=== PATIENT | female | born 1945 | race Caucasian/White ===

== ENCOUNTER → 2016-04-27 | Outpatient (CLI) | payer MEDICARE, BC ==
[~2016-04-27] MED LIST: ALEVE LIQCAPS PO; B-12 100 MCG PO; BENAZEPRIL PO; CALCIUM 600MG+D1 TAB PO; CARDIZEM CD 12120 MG PO; CELEXA 20MG20 MG/TAB PO; COLACE 100100 MG/CAP PO; COMTAN 200MG T200 MG PO; ELIQUIS 5MG PO; EPA FISH OIL1 SGL PO; GLUCOPHAGE500 MG/TAB PO; HCTZ 25MG TAB25 MG PO; HCTZ PO; K-TAB10 PO; K-TAB20 PO; KLONOPIN 0.5MG0.5 MG PO; KLONOPIN WAFER0.5 MG PO; KRILL OIL 3001 EACH PO; LEVAQUIN 750MG750 M1 PO; LIORESAL 1010 MG/TAB PO; LORTAB 5/500 501 TAB PO; LOTENSIN20 MG PO; MULTIPLE VITAMI1 CAP PO; OYSTER CALCIUM/1 TA1 PO; PERCOCET 325 MG1 TAB PO; PREDNISONE10 MG PO; REQUIP 0.5MG0.5 MG PO; REQUIP 1MG T1 MG/TAB PO; REQUIP3 MG PO; SINEMET 25/101 UDTAB PO; TOPROL XL 50MG50 MG PO; TYLENOL 325MG325 MG PO; VITAMIN C500 MG PO; VITAMIN D 400400 IU PO; VITAMINE200 PO; WELLBUTRIN SR150 M1 PO; XOPENEX 1.1.25 MG/3 IH
== END ==
LOC: SUN.DIA 13:12
DX: E11.21 Type 2 diabetes mellitus with diabetic nephropathy (principal); Z79.84 Long term (current) use of oral hypoglycemic drugs; E66.9 Obesity, unspecified; Z71.3 Dietary counseling and surveillance; I10 Essential (primary) hypertension; I73.9 Peripheral vascular disease, unspecified

== ENCOUNTER 2016-08-30 16:38 | Inpatient (IN) | payer MEDICARE, BC ==
[~2016-08-30] VITALS: Ht 177.8 cm; Wt 112.0 kg
[~2016-08-30 16:38] MED LIST changes: -CALCIUM 600MG+D1 TAB PO; -CARDIZEM CD 12120 MG PO; -COLACE 100100 MG/CAP PO; -ELIQUIS 5MG PO; -EPA FISH OIL1 SGL PO; -GLUCOPHAGE500 MG/TAB PO; -HCTZ 25MG TAB25 MG PO; -K-TAB10 PO; -K-TAB20 PO; -KLONOPIN 0.5MG0.5 MG PO; -KLONOPIN WAFER0.5 MG PO; -KRILL OIL 3001 EACH PO; -LEVAQUIN 750MG750 M1 PO; -LOTENSIN20 MG PO; -PERCOCET 325 MG1 TAB PO; -PREDNISONE10 MG PO; -REQUIP 1MG T1 MG/TAB PO; -REQUIP3 MG PO; -TOPROL XL 50MG50 MG PO; -TYLENOL 325MG325 MG PO; -VITAMINE200 PO; -WELLBUTRIN SR150 M1 PO; -XOPENEX 1.1.25 MG/3 IH
[2016-08-30 17:21] LABS: BASO % 0.2 % (0.0-2.0); EOS % 0.3 % (0-4.0); GRAN # 6.3 (1.4-6.5); GRAN % 72.9 % (42.2-75.2); HEMATOCRIT 39.2 % (37.0-47.0); LYMPH # 1.3 (1.2-3.4); LYMPH % 14.4 % (20.0-51.0); MEAN CELL VOLUME 85 fl (80.0-100.0); MEAN CORPUSCULAR HEMOGLOBIN 28 pg (27.0-31.0); MEAN CORPUSCULAR HGB CONC 33 g/dl (33.0-37.0); MEAN PLATELET VOLUME 10.8 fl (7.4-10.4); MONO % 11.3 % (1.7-9.3); PLATELET COUNT 210 K/mm3 (130-400); RED BLOOD COUNT 4.64 M/mm3 (4.10-5.30); REDCELL DISTRIBUTION WIDTH-CV 13.2 % (11.5-14.5); WHITE BLOOD COUNT 8.7 K/mm3 (4.8-10.8)
[2016-08-30 17:24] LABS: INR 1.1 (0.8-3.0); PROTHROMBIN TIME 12.1 SECONDS (9.7-12.8)
[2016-08-30 17:31] LABS: ADJUSTED CALCIUM 9.9 mg/dL (8.4-10.2); ALANINE AMINOTRANSFERASE 17 U/L (9-52); ALBUMIN 4.4 gm/dL (3.5-5.0); ALKALINE PHOSPHATASE 89 U/L (50-136); ANION GAP 12 mmol/L (7-16); BILIRUBIN,TOTAL 1.2 mg/dL (0.0-1.0); BLOOD UREA NITROGEN 15 mg/dL (7-17); CALCIUM 10.2 mg/dL (8.4-10.2); CARBON DIOXIDE 29 mmol/L (22-30); CHLORIDE 96 mmol/L (98-107); CREATININE, serum 0.75 mg/dL (0.52-1.25); GLUCOSE 160 mg/dL (74-106); POTASSIUM 3.6 mmol/L (3.4-5.0); SODIUM 137 mmol/L (137-145); TOTAL PROTEIN 7.4 gm/dL (6.4-8.2)
[2016-08-30 17:32] LABS: PH 6 (5-8); URINE APPEARANCE Hazy; URINE BACTERIA Rare /hpf; URINE BILIRUBIN Negative (NEGATIVE); URINE BLOOD Negative (NEGATIVE); URINE COLOR Amber; URINE GLUCOSE Negative (NEGATIVE); URINE KETONE 1+ (NEGATIVE); URINE UROBILINOGEN Negative (NEGATIVE)
[2016-08-30 17:33] LABS: URINE WBC 20-50 /hpf
[2016-08-30] MEDS ORDERED: REQUIP 1MG T1 MG/TAB PO (17:40)
[2016-08-30 17:41] LABS: B-TYPE NATRIURETIC PEPTIDE 250 pg/mL (0-125)
[2016-08-30 17:42] LABS: TROPONIN-I < 0.012 ng/mL (0.000-0.034)
[2016-08-30] MEDS ORDERED: LIORESAL 1010 MG/TAB PO (17:44)
[2016-08-30] MEDS ORDERED: KLONOPIN WAFER0.5 MG PO (17:46)
[2016-08-30] MEDS ORDERED: KLONOPIN 0.5MG0.5 MG PO (17:48)
[2016-08-30] MEDS ORDERED: COMTAN 200MG T200 MG PO (17:50)
[2016-08-30 20:19] VITALS: BP 152/85; PULSE 130; TEMP 98.9
[2016-08-31] VITALS (615 sets, daily range): BP systolic 107–171; BP diastolic 49–85; PULSE 66–108; TEMP 98.2–101.4; O2SAT 62–100
[2016-08-31 03:47] LABS: BASO % 0.3 % (0.0-2.0); EOS % 0.1 % (0-4.0); GRAN % 73.5 % (42.2-75.2); HEMOGLOBIN 12.1 g/dl (12.5-16.0); LYMPH % 14.7 % (20.0-51.0); MEAN CELL VOLUME 84 fl (80.0-100.0); MEAN CORPUSCULAR HEMOGLOBIN 28 pg (27.0-31.0); MEAN CORPUSCULAR HGB CONC 33 g/dl (33.0-37.0); MEAN PLATELET VOLUME 10.6 fl (7.4-10.4); MONO # 0.8 (0.1-0.6); MONO % 11.1 % (1.7-9.3); PLATELET COUNT 182 K/mm3 (130-400); RED BLOOD COUNT 4.34 M/mm3 (4.10-5.30); REDCELL DISTRIBUTION WIDTH-CV 13.2 % (11.5-14.5); WHITE BLOOD COUNT 6.9 K/mm3 (4.8-10.8)
[2016-08-31 03:51] LABS: HEMATOCRIT 36.5 % (37.0-47.0)
[2016-08-31 03:57] LABS: CALCIUM 9.4 mg/dL (8.4-10.2); CREATININE, serum 0.7 mg/dL (0.52-1.25); POTASSIUM 3.4 mmol/L (3.4-5.0)
[2016-08-31] MEDS ORDERED: REQUIP3 MG PO (10:29)
[2016-08-31] MEDS ORDERED: SINEMET 25/101 UDTAB PO ×2 (10:32→10:34)
[2016-08-31] MEDS ORDERED: CALCIUM 600MG+D1 TAB PO (10:43)
[2016-08-31] MEDS ORDERED: WELLBUTRIN SR150 M1 PO (10:44)
[2016-08-31] MEDS ORDERED: HCTZ 25MG TAB25 MG PO (10:45)
[2016-08-31] MEDS ORDERED: LOTENSIN20 MG PO (10:45)
[2016-08-31] MEDS ORDERED: EPA FISH OIL1 SGL PO (10:46)
[2016-08-31] MEDS ORDERED: KRILL OIL 3001 EACH PO (10:47)
[2016-08-31] MEDS ORDERED: VITAMINE200 PO (10:55)
[2016-08-31] MEDS ORDERED: GLUCOPHAGE500 MG/TAB PO (11:07)
[2016-08-31] MEDS ORDERED: PERCOCET 325 MG1 TAB PO (11:11)
[2016-09-01 04:43] VITALS: BP 119/80; PULSE 98; TEMP 97.6
[2016-09-01 07:28] VITALS: BP 113/56; PULSE 65; TEMP 98.2
[2016-09-01 11:30] VITALS: BP 99/53; PULSE 71; TEMP 97.9
[2016-09-01 16:37] VITALS: BP 104/54; PULSE 82; TEMP 97.9
[2016-09-01 20:54] VITALS: BP 113/52; PULSE 78; TEMP 98.2
[2016-09-01 22:51] VITALS: BP 135/61; PULSE 66; TEMP 97.8
[2016-09-02 02:45] VITALS: BP 153/71; PULSE 66; TEMP 97.1
[2016-09-02 08:10] VITALS: BP 121/65; PULSE 64; TEMP 97.6
[2016-09-02 09:31] LABS: CALCIUM 9.6 mg/dL (8.4-10.2); CREATININE, serum 0.72 mg/dL (0.52-1.25); POTASSIUM 3.2 mmol/L (3.4-5.0)
[2016-09-02 12:29] VITALS: BP 134/93; PULSE 68; TEMP 97.9
[2016-09-02] MEDS ORDERED: LEVAQUIN 750MG750 M1 PO (12:52)
[2016-09-02] MEDS ORDERED: XOPENEX 1.1.25 MG/3 IH (12:54)
[2016-09-02] MEDS ORDERED: TOPROL XL 50MG50 MG PO (12:54)
[2016-09-02] MEDS ORDERED: TYLENOL 325MG325 MG PO (12:55)
[2016-09-02] MEDS ORDERED: COLACE 100100 MG/CAP PO (12:56)
[2016-09-02] MEDS ORDERED: PREDNISONE10 MG PO (12:57)
[2016-09-02] MEDS ORDERED: KLONOPIN 0.5MG0.5 MG PO (12:58)
[2016-09-02] MEDS ORDERED: PERCOCET 325 MG1 TAB PO (12:58)
[2016-09-02 16:18] VITALS: BP 99/77; PULSE 68; TEMP 98
[2016-09-02 20:13] VITALS: BP 110/46; PULSE 61; TEMP 97.6
[2016-09-03 00:32] VITALS: BP 104/57; PULSE 56; TEMP 97.6
[2016-09-03 03:37] VITALS: BP 139/64; PULSE 68; TEMP 97.9
[2016-09-03 07:03] LABS: CALCIUM 9.5 mg/dL (8.4-10.2); CREATININE, serum 0.74 mg/dL (0.52-1.25); MAGNESIUM 1.6 mg/dL (1.6-2.3)
[2016-09-03] MEDS ORDERED: LEVAQUIN 750MG750 M1 PO ×2 (07:57→07:59)
[2016-09-03] MEDS ORDERED: K-TAB20 PO (07:59)
[2016-09-03 08:33] VITALS: BP 129/61; PULSE 65; TEMP 97.5
[2016-09-03 10:58] VITALS: BP 121/54; PULSE 68
[2016-09-03] MEDS ORDERED: K-TAB10 PO (13:04)
[2016-09-03 14:16] VITALS: BP 121/54; PULSE 68; TEMP 97.5
[2016-09-03] MEDS ORDERED: CARDIZEM CD 12120 MG PO (16:31)
[2016-09-03] MEDS ORDERED: ELIQUIS 5MG PO (16:31)
== END 2016-09-03 15:35 | DRG 689 ==
LOC: COL.ER 16:38 → MEDICAL 17:58 → ICU 20:40 → MEDICAL 20:40 → ICU 20:40 → MEDICAL 21:58
PROVIDERS: Emergency Medicine; Nurse Practitioner Family
DX: N39.0 Urinary tract infection, site not specified (principal); A41.51 Sepsis due to Escherichia coli [E. coli]; I50.31 Acute diastolic (congestive) heart failure; I48.92 Unspecified atrial flutter; N17.9 Acute kidney failure, unspecified; J20.9 Acute bronchitis, unspecified; B96.20 Unspecified Escherichia coli [E. coli] as the cause of diseases classified elsewhere; G20 Parkinson's disease; I11.0 Hypertensive heart disease with heart failure; Z87.891 Personal history of nicotine dependence; I48.0 Paroxysmal atrial fibrillation; E87.6 Hypokalemia; R73.9 Hyperglycemia, unspecified; T38.0X5A Adverse effect of glucocorticoids and synthetic analogues, initial encounter
CPT/HCPCS: 99223-AI; 99233-AI; 99239; G8987-GO; G8988-GO; J1815; J1940; J1956; J2060; J2270; J7030; J7050; J7512; Q9967

== ENCOUNTER → 2016-09-17 | Outpatient (CLI) | payer OTHER, MEDICARE, BC ==
[~2016-09-17] MED LIST changes: +CALCIUM 600MG+D1 TAB PO; +CARDIZEM CD 12120 MG PO; +COLACE 100100 MG/CAP PO; +ELIQUIS 5MG PO; +EPA FISH OIL1 SGL PO; +GLUCOPHAGE500 MG/TAB PO; +HCTZ 25MG TAB25 MG PO; +K-TAB10 PO; +K-TAB20 PO; +KLONOPIN 0.5MG0.5 MG PO; +KLONOPIN WAFER0.5 MG PO; +KRILL OIL 3001 EACH PO; +LEVAQUIN 750MG750 M1 PO; +LOTENSIN20 MG PO; +PERCOCET 325 MG1 TAB PO; +PREDNISONE10 MG PO; +REQUIP 1MG T1 MG/TAB PO; +REQUIP3 MG PO; +TOPROL XL 50MG50 MG PO; +TYLENOL 325MG325 MG PO; +VITAMINE200 PO; +WELLBUTRIN SR150 M1 PO; +XOPENEX 1.1.25 MG/3 IH
== END ==
LOC: COL.CARD 10:41
DX: I48.91 Unspecified atrial fibrillation (principal)

== ENCOUNTER → 2016-12-16 | Outpatient (CLI) | payer MEDICARE, BC | LOC: COL.RAD 10:59 | DX: M48.07 Spinal stenosis, lumbosacral region (principal); M51.27 Other intervertebral disc displacement, lumbosacral region; M47.817 Spondylosis without myelopathy or radiculopathy, lumbosacral region; M41.86 Other forms of scoliosis, lumbar region; G20 Parkinson's disease ==

== ENCOUNTER 2017-11-17 12:01 | Inpatient (IN) | payer MEDICARE, BC ==
[2017-11-17] VITALS (445 sets, daily range): BP systolic 106–128; BP diastolic 47–67; PULSE 62–75; TEMP 97.6–97.8; O2SAT 84–100
[~2017-11-17] VITALS: Ht 172.7 cm; Wt 99.2 kg
[~2017-11-17 12:01] MED LIST changes: -REQUIP3 MG PO; -WELLBUTRIN SR150 M1 PO; +WELLBUTRIN XL300 M1 PO
[2017-11-17 12:41] LABS: BASO % 0.2 % (0.0-2.0); EOS # 0.1 (0.0-0.7); GRAN # 6.1 (1.4-6.5); GRAN % 58.6 % (42.2-75.2); HEMATOCRIT 42.2 % (37.0-47.0); HEMOGLOBIN 13.1 g/dl (12.5-16.0); LYMPH # 3.3 (1.2-3.4); LYMPH % 31.4 % (20.0-51.0); MEAN CELL VOLUME 85 fl (80.0-100.0); MEAN CORPUSCULAR HEMOGLOBIN 27 pg (27.0-31.0); MEAN CORPUSCULAR HGB CONC 31 g/dl (33.0-37.0); MEAN PLATELET VOLUME 12.8 fl (7.4-10.4); MONO # 0.9 (0.1-0.6); MONO % 8.5 % (1.7-9.3); PLATELET COUNT 287 K/mm3 (130-400); RED BLOOD COUNT 4.94 M/mm3 (4.10-5.30); REDCELL DISTRIBUTION WIDTH-CV 13.4 % (11.5-14.5)
[2017-11-17 12:50] LABS: ALANINE AMINOTRANSFERASE < 6 U/L (9-52); ALBUMIN 4.8 gm/dL (3.5-5.0); ALKALINE PHOSPHATASE 64 U/L (50-136); ANION GAP 25 mmol/L (7-16); AST,SGOT 14 U/L (15-37); BILIRUBIN,TOTAL 1.2 mg/dL (0.0-1.0); BLOOD UREA NITROGEN 19 mg/dL (7-17); CALCIUM 10.8 mg/dL (8.4-10.2); CARBON DIOXIDE 21 mmol/L (22-30); CHLORIDE 94 mmol/L (98-107); CREATININE, serum 0.93 mg/dL (0.52-1.25); GLUCOSE 121 mg/dL (74-106); POTASSIUM 3.4 mmol/L (3.4-5.0); SODIUM 141 mmol/L (137-145); TOTAL PROTEIN 7.7 gm/dL (6.4-8.2)
[2017-11-17] MEDS ORDERED: KLONOPIN 0.5MG0.5 MG PO (13:06)
[2017-11-17] MEDS ORDERED: GLUCOPHAGE500 MG/TAB PO (13:11)
[2017-11-17 13:13] LABS: PROLACTIN < 1.4 ng/mL (3.0-18.6)
[2017-11-17] MEDS ORDERED: PERCOCET 325 MG1 TAB PO (13:13)
[2017-11-17 21:01] LABS: COLLECTION METHOD CATHETER
[2017-11-17 21:07] LABS: MUCOUS Present /lpf; PH 6 (5-8); SQUAMOUS EPITHELIAL 0-2 /hpf; URINE APPEARANCE Clear; URINE BACTERIA Rare /hpf; URINE BILIRUBIN Negative (NEGATIVE); URINE BLOOD Negative (NEGATIVE); URINE COLOR Yellow; URINE GLUCOSE Negative (NEGATIVE); URINE KETONE Trace (NEGATIVE); URINE LEUKOCYTE ESTERASE Negative (NEGATIVE); URINE NITRATE Negative (NEGATIVE); URINE PROTEIN(semi-quant) Negative (NEGATIVE); URINE RBC None Seen /hpf; URINE UROBILINOGEN Negative (NEGATIVE)
[2017-11-18] VITALS (615 sets, daily range): BP systolic 101–153; BP diastolic 45–76; PULSE 56–90; TEMP 97.1–99.3; O2SAT 61–100
[2017-11-18] MEDS ORDERED: SINEMET 25/101 UDTAB PO (13:19)
[2017-11-18] MEDS ORDERED: LIORESAL 1010 MG/TAB PO (13:20)
[2017-11-18] MEDS ORDERED: REQUIP 1MG T1 MG/TAB PO (13:23)
[2017-11-19 03:08] VITALS: BP 109/43; PULSE 63; TEMP 98.3
[2017-11-19 07:48] VITALS: BP 101/51; PULSE 59; TEMP 98.3
[2017-11-19 12:06] VITALS: BP 145/59; PULSE 77; TEMP 98.3
[2017-11-19 13:34] LABS: MEAN CELL VOLUME 81 fl (80.0-100.0); MEAN CORPUSCULAR HGB CONC 33 g/dl (33.0-37.0); MEAN PLATELET VOLUME 12.7 fl (7.4-10.4); RED BLOOD COUNT 4.04 M/mm3 (4.10-5.30); REDCELL DISTRIBUTION WIDTH-CV 13.5 % (11.5-14.5)
[2017-11-19 13:39] LABS: HEMATOCRIT 32.6 % (37.0-47.0); HEMOGLOBIN 10.8 g/dl (12.5-16.0); MEAN CORPUSCULAR HEMOGLOBIN 27 pg (27.0-31.0)
[2017-11-19 13:40] LABS: PLATELET COUNT 171 K/mm3 (130-400)
[2017-11-19 16:13] VITALS: BP 118/66; PULSE 77; TEMP 98.3
[2017-11-19 19:33] VITALS: BP 102/56; PULSE 62; TEMP 98.1
[2017-11-20 01:07] VITALS: BP 127/57; PULSE 64; TEMP 98.9
[2017-11-20 04:09] VITALS: BP 110/55; PULSE 57; TEMP 98.2
[2017-11-20 07:20] LABS: BASO % 0.4 % (0.0-2.0); EOS # 0.1 (0.0-0.7); EOS % 2.3 % (0-4.0); GRAN # 3.2 (1.4-6.5); HEMOGLOBIN 10.1 g/dl (12.5-16.0); LYMPH % 21.4 % (20.0-51.0); MEAN CELL VOLUME 82 fl (80.0-100.0); MEAN CORPUSCULAR HEMOGLOBIN 27 pg (27.0-31.0); MEAN CORPUSCULAR HGB CONC 33 g/dl (33.0-37.0); MEAN PLATELET VOLUME 12.5 fl (7.4-10.4); MONO # 0.5 (0.1-0.6); MONO % 9.5 % (1.7-9.3); PLATELET COUNT 145 K/mm3 (130-400); RED BLOOD COUNT 3.78 M/mm3 (4.10-5.30); REDCELL DISTRIBUTION WIDTH-CV 13.8 % (11.5-14.5)
[2017-11-20 07:22] LABS: HEMATOCRIT 30.8 % (37.0-47.0)
[2017-11-20 07:31] VITALS: BP 113/65; PULSE 61; TEMP 98.1
[2017-11-20 07:31] LABS: CALCIUM 8.4 mg/dL (8.4-10.2); CREATININE, serum 0.62 mg/dL (0.52-1.25)
[2017-11-20 07:44] LABS: POTASSIUM 2.7 mmol/L (3.4-5.0)
[2017-11-20 12:25] VITALS: BP 121/56; PULSE 54; TEMP 98.3
[2017-11-20 14:11] LABS: CALCIUM 8.4 mg/dL (8.4-10.2); CREATININE, serum 0.53 mg/dL (0.52-1.25)
[2017-11-20] MEDS ORDERED: KEPPRA 500MG500 MG PO (14:55)
[2017-11-20] MEDS ORDERED: K-DUR20 MEQ PO (15:45)
== END 2017-11-20 16:50 | disposition home or self-care (01) | DRG 101 ==
LOC: COL.ER 12:01 → ICU 13:20 → MEDICAL 11-18 11:55
PROVIDERS: Emergency Medicine; Student in an Organized Health Care Education/Training Program
DX: R56.9 Unspecified convulsions (principal); E87.2 Acidosis; Z66 Do not resuscitate; G20 Parkinson's disease; A08.4 Viral intestinal infection, unspecified; I10 Essential (primary) hypertension; E11.9 Type 2 diabetes mellitus without complications; Z87.891 Personal history of nicotine dependence; E87.6 Hypokalemia; F32.9 Major depressive disorder, single episode, unspecified
CPT/HCPCS: 99232-AI; 99233-AI; 99239; J1650; J1953; J2405; J3480; J7030

== ENCOUNTER 2017-11-24 11:55 | Inpatient (IN) | payer MEDICARE, BC ==
[~2017-11-24] VITALS: Ht 175.3 cm; Wt 102.1 kg
[~2017-11-24 11:55] MED LIST changes: +K-DUR20 MEQ PO; +KEPPRA 500MG500 MG PO
[2017-11-24 12:25] VITALS: BP 118/69; PULSE 67; TEMP 98.2
[2017-11-24 15:37] LABS: MEAN CELL VOLUME 81 fl (80.0-100.0); MEAN CORPUSCULAR HGB CONC 33 g/dl (33.0-37.0); MEAN PLATELET VOLUME 11.9 fl (7.4-10.4); PLATELET COUNT 194 K/mm3 (130-400); RED BLOOD COUNT 3.57 M/mm3 (4.10-5.30); REDCELL DISTRIBUTION WIDTH-CV 13.9 % (11.5-14.5)
[2017-11-24 15:38] LABS: HEMATOCRIT 28.9 % (37.0-47.0); HEMOGLOBIN 9.6 g/dl (12.5-16.0); MEAN CORPUSCULAR HEMOGLOBIN 27 pg (27.0-31.0)
[2017-11-24 15:48] LABS: ALBUMIN 2.9 gm/dL (3.5-5.0); BILIRUBIN,TOTAL 0.4 mg/dL (0.0-1.0); CALCIUM 8.4 mg/dL (8.4-10.2); CREATININE, serum 0.54 mg/dL (0.52-1.25); MAGNESIUM 1.2 mg/dL (1.6-2.3); POTASSIUM 3.3 mmol/L (3.4-5.0); TOTAL PROTEIN 5.2 gm/dL (6.4-8.2)
[2017-11-24 15:59] LABS: BAND 1 % (0-10); EOSINOPHIL 2 % (0-4); LYMPHOCYTE 22 % (20.0-51.0); NEUTROPHILS 75 % (42.0-75.2)
[2017-11-24 16:00] LABS: ANISOCYTOSIS 1+; PLATELET ESTIMATE NORMAL (NORMAL)
[2017-11-24 19:43] VITALS: BP 144/74; PULSE 62; TEMP 97.9
[2017-11-25] VITALS (12 sets, daily range): BP systolic 120–155; BP diastolic 56–73; PULSE 58–84; TEMP 97.3–99
[2017-11-25 08:50] LABS: CALCIUM 8.4 mg/dL (8.4-10.2); CREATININE, serum 0.54 mg/dL (0.52-1.25); MAGNESIUM 1.3 mg/dL (1.6-2.3); POTASSIUM 3.5 mmol/L (3.4-5.0)
[2017-11-25 09:49] LABS: BASO % 0.3 % (0.0-2.0); EOS # 0.1 (0.0-0.7); EOS % 1.8 % (0-4.0); GRAN # 4.3 (1.4-6.5); GRAN % 70.8 % (42.2-75.2); LYMPH # 1.3 (1.2-3.4); LYMPH % 20.7 % (20.0-51.0); MEAN CELL VOLUME 81 fl (80.0-100.0); MEAN CORPUSCULAR HEMOGLOBIN 27 pg (27.0-31.0); MEAN CORPUSCULAR HGB CONC 33 g/dl (33.0-37.0); MEAN PLATELET VOLUME 12.7 fl (7.4-10.4); MONO # 0.3 (0.1-0.6); MONO % 5.6 % (1.7-9.3); PLATELET COUNT 226 K/mm3 (130-400); RED BLOOD COUNT 3.76 M/mm3 (4.10-5.30); REDCELL DISTRIBUTION WIDTH-CV 13.7 % (11.5-14.5)
[2017-11-25 09:52] LABS: HEMATOCRIT 30.5 % (37.0-47.0)
[2017-11-26] VITALS (7 sets, daily range): BP systolic 111–138; BP diastolic 56–66; PULSE 55–68; TEMP 97.8–98.7
[2017-11-26 07:18] LABS: BASO % 0.2 % (0.0-2.0); EOS # 0.2 (0.0-0.7); EOS % 2.8 % (0-4.0); GRAN # 3.7 (1.4-6.5); GRAN % 64.1 % (42.2-75.2); LYMPH # 1.4 (1.2-3.4); LYMPH % 24.4 % (20.0-51.0); MEAN CELL VOLUME 82 fl (80.0-100.0); MEAN CORPUSCULAR HGB CONC 32 g/dl (33.0-37.0); MEAN PLATELET VOLUME 12.1 fl (7.4-10.4); MONO # 0.5 (0.1-0.6); MONO % 7.8 % (1.7-9.3); PLATELET COUNT 212 K/mm3 (130-400); RED BLOOD COUNT 3.66 M/mm3 (4.10-5.30)
[2017-11-26 07:22] LABS: HEMOGLOBIN 9.7 g/dl (12.5-16.0); MEAN CORPUSCULAR HEMOGLOBIN 27 pg (27.0-31.0)
[2017-11-26 07:32] LABS: CALCIUM 8.4 mg/dL (8.4-10.2); CREATININE, serum 0.57 mg/dL (0.52-1.25); POTASSIUM 3.4 mmol/L (3.4-5.0)
[2017-11-27 03:52] VITALS: BP 138/69; PULSE 62; TEMP 98.3
[2017-11-27 08:20] LABS: BASO % 0.3 % (0.0-2.0); EOS # 0.2 (0.0-0.7); EOS % 3.9 % (0-4.0); GRAN # 3.7 (1.4-6.5); GRAN % 62.1 % (42.2-75.2); LYMPH # 1.5 (1.2-3.4); LYMPH % 24.8 % (20.0-51.0); MEAN CELL VOLUME 83 fl (80.0-100.0); MEAN CORPUSCULAR HGB CONC 32 g/dl (33.0-37.0); MEAN PLATELET VOLUME 12.4 fl (7.4-10.4); MONO # 0.5 (0.1-0.6); PLATELET COUNT 203 K/mm3 (130-400); RED BLOOD COUNT 3.11 M/mm3 (4.10-5.30); REDCELL DISTRIBUTION WIDTH-CV 14.3 % (11.5-14.5)
[2017-11-27 08:21] LABS: HEMATOCRIT 25.7 % (37.0-47.0); HEMOGLOBIN 8.3 g/dl (12.5-16.0); MEAN CORPUSCULAR HEMOGLOBIN 27 pg (27.0-31.0)
[2017-11-27 08:30] LABS: CALCIUM 8.2 mg/dL (8.4-10.2); CREATININE, serum 0.56 mg/dL (0.52-1.25); MAGNESIUM 1.7 mg/dL (1.6-2.3); POTASSIUM 3.5 mmol/L (3.4-5.0)
[2017-11-27 08:55] VITALS: BP 142/66; PULSE 61; TEMP 98.2
[2017-11-27 12:30] VITALS: BP 115/67; PULSE 62; TEMP 97.3
[2017-11-27 16:07] VITALS: BP 117/81; PULSE 59; TEMP 97.1
[2017-11-27 19:39] VITALS: BP 107/58; PULSE 66; TEMP 98.5
[2017-11-27 23:26] VITALS: BP 133/61; PULSE 66; TEMP 98.4
[2017-11-28 04:45] VITALS: BP 131/72; PULSE 59; TEMP 98.3
[2017-11-28 07:38] VITALS: BP 119/67; PULSE 60; TEMP 96.9
[2017-11-28] MEDS ORDERED: MAG-OX 400400 MG/TAB PO (07:47)
[2017-11-28] MEDS ORDERED: PROTONIX20 MG PO (07:48)
[2017-11-28 11:14] VITALS: BP 139/79; PULSE 55; TEMP 97.7
[2017-11-28] MEDS ORDERED: GLUCOPHAGE1000 MG PO (20:44)
[2017-11-28] MEDS ORDERED: GLUCOPHAGE500 MG/TAB PO (20:44)
== END 2017-11-28 11:56 | DRG 392 ==
LOC: MEDICAL 11:55
PROVIDERS: Hospitalist; Internal Medicine; Internal Medicine Gastroenterology; Physician Assistant
PROC: 0DB68ZX Excision of Stomach, Via Natural or Artificial Opening Endoscopic, Diagnostic (ICD-10-PCS; principal; 2017-11-25 11:15)
DX: K29.70 Gastritis, unspecified, without bleeding (principal); K20.9 Esophagitis, unspecified; E87.6 Hypokalemia; E83.42 Hypomagnesemia; R62.7 Adult failure to thrive; G20 Parkinson's disease; I10 Essential (primary) hypertension; E11.9 Type 2 diabetes mellitus without complications; G40.909 Epilepsy, unspecified, not intractable, without status epilepticus
CPT/HCPCS: 99222-AI; 99231-AI; 99232-AI; 99239; J1650; J2250; J2405; J3010; J3475; J3480

== ENCOUNTER 2017-12-13 18:28 | Inpatient (IN) | payer MEDICARE, BC ==
[~2017-12-13] VITALS: Ht 175.3 cm; Wt 102.0 kg
[2017-12-13] VITALS (16 sets, daily range): BP systolic 89–123; BP diastolic 50–71; PULSE 61–63; TEMP 97.5–98.3; O2SAT 96–100
[~2017-12-13 18:28] MED LIST changes: +ANUSOL HC CREAM30 GM TOP; +GLUCOPHAGE1000 MG PO; +MAG-OX 400400 MG/TAB PO; +PROTONIX20 MG PO; +ZOLOFT 25MG25 MG PO; +ZOLOFT 50MG50 MG PO
[2017-12-13 19:07] LABS: BASO % 0.5 % (0.0-2.0); EOS # 0.1 (0.0-0.7); EOS % 1.4 % (0-4.0); GRAN # 4.1 (1.4-6.5); GRAN % 62.7 % (42.2-75.2); LYMPH # 1.6 (1.2-3.4); MEAN CELL VOLUME 86 fl (80.0-100.0); MEAN CORPUSCULAR HGB CONC 32 g/dl (33.0-37.0); MEAN PLATELET VOLUME 11.6 fl (7.4-10.4); MONO # 0.7 (0.1-0.6); MONO % 11.1 % (1.7-9.3); PLATELET COUNT 273 K/mm3 (130-400); REDCELL DISTRIBUTION WIDTH-CV 17.2 % (11.5-14.5)
[2017-12-13 19:10] LABS: HEMATOCRIT 30.2 % (37.0-47.0); HEMOGLOBIN 9.5 g/dl (12.5-16.0); MEAN CORPUSCULAR HEMOGLOBIN 27 pg (27.0-31.0)
[2017-12-13 19:22] LABS: COLLECTION METHOD CATHETER
[2017-12-13 19:27] LABS: ALBUMIN 3.2 gm/dL (3.5-5.0); BILIRUBIN,TOTAL 0.8 mg/dL (0.0-1.0); C-REACTIVE PROTEIN 5.7 mg/dL (0.0-0.9); CALCIUM 9.4 mg/dL (8.4-10.2); CREATININE, serum 1.06 mg/dL (0.52-1.25); MAGNESIUM 1.8 mg/dL (1.6-2.3); PHOSPHOROUS 3.3 mg/dL (2.5-4.5); POTASSIUM 4.1 mmol/L (3.4-5.0); TOTAL PROTEIN 5.8 gm/dL (6.4-8.2)
[2017-12-13 19:32] LABS: HYALINE CAST >12 /lpf; MUCOUS Present /lpf; PH 5 (5-8); URINE APPEARANCE Cloudy; URINE BACTERIA Rare /hpf; URINE BILIRUBIN Positive (NEGATIVE); URINE BLOOD 1+ (NEGATIVE); URINE COLOR Amber; URINE GLUCOSE Negative (NEGATIVE); URINE KETONE Trace (NEGATIVE); URINE LEUKOCYTE ESTERASE 2+ (NEGATIVE); URINE NITRATE Negative (NEGATIVE); URINE PROTEIN(semi-quant) 2+ (NEGATIVE); URINE UROBILINOGEN Negative (NEGATIVE)
[2017-12-13 19:36] LABS: TROPONIN-I 0.013 ng/mL (0.000-0.034)
[2017-12-14] VITALS (282 sets, daily range): BP systolic 112–148; BP diastolic 51–83; PULSE 52–93; TEMP 98–98.8; O2SAT 91–100
[2017-12-14 06:36] LABS: BASO % 0.6 % (0.0-2.0); EOS # 0.1 (0.0-0.7); EOS % 2.6 % (0-4.0); GRAN # 3.1 (1.4-6.5); GRAN % 58.5 % (42.2-75.2); LYMPH # 1.5 (1.2-3.4); LYMPH % 27.6 % (20.0-51.0); MEAN CELL VOLUME 86 fl (80.0-100.0); MEAN CORPUSCULAR HGB CONC 31 g/dl (33.0-37.0); MONO # 0.6 (0.1-0.6); MONO % 10.5 % (1.7-9.3); PLATELET COUNT 247 K/mm3 (130-400); RED BLOOD COUNT 3.67 M/mm3 (4.10-5.30); REDCELL DISTRIBUTION WIDTH-CV 17.2 % (11.5-14.5)
[2017-12-14 06:40] LABS: HEMATOCRIT 31.7 % (37.0-47.0); HEMOGLOBIN 9.9 g/dl (12.5-16.0); MEAN CORPUSCULAR HEMOGLOBIN 27 pg (27.0-31.0)
[2017-12-14 06:46] LABS: CALCIUM 8.8 mg/dL (8.4-10.2); CREATININE, serum 0.77 mg/dL (0.52-1.25); MAGNESIUM 1.8 mg/dL (1.6-2.3); POTASSIUM 3.9 mmol/L (3.4-5.0)
[2017-12-15 00:19] VITALS: BP 140/56; PULSE 74; TEMP 98.2
[2017-12-15 05:38] VITALS: BP 120/64; PULSE 71; TEMP 98.5
[2017-12-15 07:51] VITALS: BP 146/65; PULSE 55; TEMP 98.1
[2017-12-15 11:16] VITALS: BP 133/55; PULSE 68; TEMP 98.4
[2017-12-15 16:03] VITALS: BP 138/67; PULSE 68; TEMP 98.3
[2017-12-15 20:34] VITALS: BP 120/56; PULSE 71; TEMP 98.6
[2017-12-16 01:01] VITALS: BP 151/73; PULSE 68; TEMP 98.1
[2017-12-16 05:24] VITALS: BP 127/82; PULSE 84; TEMP 98.2
[2017-12-16 07:31] LABS: BASO % 0.3 % (0.0-2.0); EOS # 0.2 (0.0-0.7); EOS % 3.8 % (0-4.0); GRAN # 2.5 (1.4-6.5); GRAN % 63.5 % (42.2-75.2); LYMPH # 0.9 (1.2-3.4); LYMPH % 23.3 % (20.0-51.0); MEAN CELL VOLUME 87 fl (80.0-100.0); MEAN CORPUSCULAR HGB CONC 32 g/dl (33.0-37.0); MEAN PLATELET VOLUME 11.1 fl (7.4-10.4); MONO # 0.3 (0.1-0.6); MONO % 8.6 % (1.7-9.3); PLATELET COUNT 215 K/mm3 (130-400); RED BLOOD COUNT 3.48 M/mm3 (4.10-5.30); REDCELL DISTRIBUTION WIDTH-CV 16.8 % (11.5-14.5)
[2017-12-16 07:34] LABS: HEMATOCRIT 30.1 % (37.0-47.0); HEMOGLOBIN 9.5 g/dl (12.5-16.0); MEAN CORPUSCULAR HEMOGLOBIN 27 pg (27.0-31.0)
[2017-12-16 07:44] LABS: CALCIUM 8.8 mg/dL (8.4-10.2); CREATININE, serum 0.57 mg/dL (0.52-1.25); POTASSIUM 3.1 mmol/L (3.4-5.0)
[2017-12-16 08:07] VITALS: BP 152/69; PULSE 69; TEMP 97.8
[2017-12-16] MEDS ORDERED: OMNICEF 300MG300 MG PO (09:10)
[2017-12-16] MEDS ORDERED: NOVLOG SQ (09:57)
[2017-12-16 12:30] VITALS: BP 142/64; PULSE 74; TEMP 98.2
[2017-12-16 17:39] VITALS: BP 130/75; PULSE 69; TEMP 98.2
== END 2017-12-16 18:29 | DRG 71 ==
LOC: COL.ER 18:28 → ICU 21:09 → MEDICAL 12-14 15:10
PROVIDERS: Emergency Medicine; Nurse Practitioner; Physician Assistant
DX: G93.41 Metabolic encephalopathy (principal); N39.0 Urinary tract infection, site not specified; F05 Delirium due to known physiological condition; E44.0 Moderate protein-calorie malnutrition; I10 Essential (primary) hypertension; E11.9 Type 2 diabetes mellitus without complications; G20 Parkinson's disease; I48.0 Paroxysmal atrial fibrillation; F41.8 Other specified anxiety disorders; Z87.891 Personal history of nicotine dependence; E86.0 Dehydration; E87.6 Hypokalemia; B96.1 Klebsiella pneumoniae [K. pneumoniae] as the cause of diseases classified elsewhere
CPT/HCPCS: 99223-AI; 99233-AI; 99239; J0696; J1630; J1644; J1815; J2060; J2405; J3010; J3475; J7030

== ENCOUNTER 2018-01-03 07:58 | Emergency (ER) | payer MEDICARE, BC ==
[~2018-01-03] VITALS: Ht 175.3 cm; Wt 100.0 kg
[~2018-01-03 07:58] MED LIST changes: +NOVLOG SQ; +OMNICEF 300MG300 MG PO
[2018-01-03 08:00] VITALS: TEMP 99.1
[2018-01-03] MEDS ORDERED: KEPPRA 500MG500 MG PO (08:15)
[2018-01-03] MEDS ORDERED: REQUIP 0.5MG0.5 MG PO (08:17)
[2018-01-03] MEDS ORDERED: REQUIP 1MG T1 MG/TAB PO (08:17)
[2018-01-03 08:31] LABS: BASO % 0.4 % (0.0-2.0); EOS # 0.1 (0.0-0.7); EOS % 2.5 % (0-4.0); GRAN # 3.5 (1.4-6.5); GRAN % 67.2 % (42.2-75.2); HEMOGLOBIN 10.1 g/dl (12.5-16.0); LYMPH # 1.2 (1.2-3.4); LYMPH % 22.4 % (20.0-51.0); MEAN CELL VOLUME 85 fl (80.0-100.0); MEAN CORPUSCULAR HEMOGLOBIN 28 pg (27.0-31.0); MEAN CORPUSCULAR HGB CONC 32 g/dl (33.0-37.0); MEAN PLATELET VOLUME 10.7 fl (7.4-10.4); MONO # 0.4 (0.1-0.6); MONO % 7.1 % (1.7-9.3); PLATELET COUNT 271 K/mm3 (130-400); RED BLOOD COUNT 3.67 M/mm3 (4.10-5.30); REDCELL DISTRIBUTION WIDTH-CV 16.8 % (11.5-14.5)
[2018-01-03 08:42] LABS: HEMATOCRIT 31.3 % (37.0-47.0)
[2018-01-03 08:47] LABS: ALANINE AMINOTRANSFERASE 22 U/L (9-52); ALBUMIN 3.3 gm/dL (3.5-5.0); ALKALINE PHOSPHATASE 65 U/L (50-136); ANION GAP 4 mmol/L (7-16); AST,SGOT 15 U/L (15-37); BILIRUBIN,TOTAL 0.5 mg/dL (0.0-1.0); BLOOD UREA NITROGEN 14 mg/dL (7-17); CALCIUM 9.2 mg/dL (8.4-10.2); CARBON DIOXIDE 31 mmol/L (22-30); CHLORIDE 102 mmol/L (98-107); CREATININE, serum 0.58 mg/dL (0.52-1.25); GLUCOSE 135 mg/dL (74-106); POTASSIUM 3.8 mmol/L (3.4-5.0); SODIUM 137 mmol/L (137-145)
[2018-01-03 09:07] LABS: TROPONIN-I < 0.012 ng/mL (0.000-0.034)
[2018-01-03 09:08] LABS: COLLECTION METHOD CATHETER
[2018-01-03 09:21] LABS: MUCOUS Present /lpf; PH 7 (5-8); URINE APPEARANCE Cloudy; URINE BACTERIA None Seen /hpf; URINE BILIRUBIN Negative (NEGATIVE); URINE BLOOD Negative (NEGATIVE); URINE COLOR Amber; URINE GLUCOSE Negative (NEGATIVE); URINE KETONE Trace (NEGATIVE); URINE LEUKOCYTE ESTERASE 3+ (NEGATIVE); URINE NITRATE Positive (NEGATIVE); URINE PROTEIN(semi-quant) 1+ (NEGATIVE); URINE UROBILINOGEN Negative (NEGATIVE)
[2018-01-03] MEDS ORDERED: SINEMET 10/101 UDTAB PO (09:23)
[2018-01-03] MEDS ORDERED: LIORESAL 1010 MG/TAB PO (10:35)
[2018-01-03] MEDS ORDERED: ZOLOFT 100MG100 MG PO (11:08)
[2018-01-03] MEDS ORDERED: PERCOCET 325 MG1 TAB PO (11:09)
[2018-01-03] MEDS ORDERED: GLUCOPHAGE500 MG/TAB PO ×2 (11:09→11:10)
[2018-01-03] MEDS ORDERED: OSCAL 500 TAB500 MG PO (11:10)
[2018-01-03] MEDS ORDERED: CEFTIN500 MG PO (12:40)
[2018-01-03 12:42] VITALS: BP 130/69; PULSE 82
== END 2018-01-03 15:30 | disposition home or self-care (01) ==
LOC: COL.ER 07:58
PROVIDERS: Emergency Medicine
DX: N39.0 Urinary tract infection, site not specified (principal); G20 Parkinson's disease; I48.91 Unspecified atrial fibrillation; E11.9 Type 2 diabetes mellitus without complications; I10 Essential (primary) hypertension; Z79.84 Long term (current) use of oral hypoglycemic drugs; Z79.891 Long term (current) use of opiate analgesic; Z90.49 Acquired absence of other specified parts of digestive tract
CPT/HCPCS: J0696; J2060; J7030

== ENCOUNTER → 2018-01-11 | Outpatient (CLI) | payer MEDICARE, BC ==
[~2018-01-11] MED LIST changes: +CEFTIN500 MG PO; +OSCAL 500 TAB500 MG PO; +SINEMET 10/101 UDTAB PO; +ZOLOFT 100MG100 MG PO
[2018-01-11 15:35] LABS: MUCOUS Present /lpf; PH 5 (5-8); URINE APPEARANCE Turbid; URINE BACTERIA None Seen /hpf; URINE BILIRUBIN Negative (NEGATIVE); URINE BLOOD 1+ (NEGATIVE); URINE CALCIUM OXALATE CRYSTAL Present /hpf; URINE COLOR Amber; URINE GLUCOSE Negative (NEGATIVE); URINE KETONE Trace (NEGATIVE); URINE LEUKOCYTE ESTERASE 2+ (NEGATIVE); URINE NITRATE Negative (NEGATIVE); URINE PROTEIN(semi-quant) 1+ (NEGATIVE); URINE RBC >50 /hpf; URINE UROBILINOGEN Negative (NEGATIVE)
[2018-01-11 16:51] LABS: COLLECTION METHOD CLEAN CATCH
== END ==
LOC: ZCOL.LAB 14:56
PROVIDERS: Family Medicine
DX: R82.90 Unspecified abnormal findings in urine (principal)

== ENCOUNTER → 2018-01-27 | Outpatient (CLI) | payer MEDICARE, BC | LOC: COL.RAD 01-25 10:00 | DX: N39.0 Urinary tract infection, site not specified (principal); N20.0 Calculus of kidney; M41.86 Other forms of scoliosis, lumbar region; M46.96 Unspecified inflammatory spondylopathy, lumbar region; M51.36 Other intervertebral disc degeneration, lumbar region; Z90.49 Acquired absence of other specified parts of digestive tract | CPT/HCPCS: Q9967 ==

== ENCOUNTER 2018-02-14 09:07 | Day surgery (SDC) | payer MEDICARE, BC ==
[~2018-02-14] VITALS: Ht 175.3 cm; Wt 86.4 kg
[~2018-02-14 09:07] MED LIST changes: -SINEMET 10/101 UDTAB PO
[2018-02-14] MEDS ORDERED: SINEMET 25/101 UDTAB PO (10:24)
[2018-02-14] MEDS ORDERED: MAG-OX 400400 MG/TAB PO (10:25)
[2018-02-14] MEDS ORDERED: PROTONIX20 MG PO (10:25)
[2018-02-14] MEDS ORDERED: K-TAB20 (10:29)
[2018-02-14] MEDS ORDERED: CRANBERRY450 MG PO (10:30)
[2018-02-14] MEDS ORDERED: B12 (10:31)
[2018-02-14] MEDS ORDERED: VITAMIN C500 MG PO (10:32)
[2018-02-14] MEDS ORDERED: VITAMIN D31000 I1 PO (10:32)
[2018-02-14] MEDS ORDERED: TYLENOL 325MG325 MG PO (10:34)
[2018-02-14] MEDS ORDERED: HCTZ 25MG TAB25 MG PO (10:34)
[2018-02-14] MEDS ORDERED: CEFTIN 250250 MG/TAB PO (10:36)
[2018-02-14 10:56] VITALS: BP 119/60; PULSE 76; TEMP 97.5
== END 2018-02-14 12:18 | disposition home or self-care (01) ==
LOC: SDCO 09:07
DX: N39.0 Urinary tract infection, site not specified (principal); G20 Parkinson's disease; N39.46 Mixed incontinence; R35.0 Frequency of micturition; F32.9 Major depressive disorder, single episode, unspecified; E11.9 Type 2 diabetes mellitus without complications; I10 Essential (primary) hypertension; E66.9 Obesity, unspecified; Z90.49 Acquired absence of other specified parts of digestive tract; Z79.84 Long term (current) use of oral hypoglycemic drugs; Z87.891 Personal history of nicotine dependence; Z88.2 Allergy status to sulfonamides; Z83.3 Family history of diabetes mellitus; Z82.49 Family history of ischemic heart disease and other diseases of the circulatory system; Z80.6 Family history of leukemia

== ENCOUNTER 2018-05-11 15:50 | Emergency (ER) | payer MEDICARE, BC ==
[~2018-05-11] VITALS: Ht 175.3 cm; Wt 78.2 kg
[~2018-05-11 15:50] MED LIST changes: +B12; +CEFTIN 250250 MG/TAB PO; +CRANBERRY450 MG PO; +K-TAB20; +VITAMIN D31000 I1 PO
[2018-05-11] MEDS ORDERED: B-121000 MCG PO (16:41)
[2018-05-11] MEDS ORDERED: VITAMIN D31000 I1 PO (16:44)
[2018-05-11] MEDS ORDERED: STOOL SOFTENER100 M2 PO (16:47)
[2018-05-11 16:53] LABS: BASO % 0.2 % (0.0-2.0); EOS # 0.2 (0.0-0.7); EOS % 4.6 % (0-4.0); GRAN # 3.5 (1.4-6.5); GRAN % 67.3 % (42.2-75.2); HEMOGLOBIN 11.4 g/dl (12.5-16.0); LYMPH # 1.2 (1.2-3.4); LYMPH % 22.1 % (20.0-51.0); MEAN CELL VOLUME 81 fl (80.0-100.0); MEAN CORPUSCULAR HEMOGLOBIN 27 pg (27.0-31.0); MEAN CORPUSCULAR HGB CONC 33 g/dl (33.0-37.0); MONO # 0.3 (0.1-0.6); MONO % 5.4 % (1.7-9.3); PLATELET COUNT 219 K/mm3 (130-400); RED BLOOD COUNT 4.31 M/mm3 (4.10-5.30); REDCELL DISTRIBUTION WIDTH-CV 12.6 % (11.5-14.5)
--- NOTE | 2018-05-11 16:55 | NUR ---
PAUL responded to ED call and met with the patient and patient's , Reece. The patient's reports that the patient has had no appetite lately, is losing weight, and more immobile. He states that it has been more difficult taking care of her. He states that he has reached out to [facility] to start services for private duty care. He states that Gabby Gurrola, with [facility], has been out to their home and that due to the weather; services had not yet started. PAUL discussed senior living place, rehab, and home health. The patient's reports that if the patient is to discharge from the ED, then he would like to take the patient home with home health services from [facility]. PAUL attempted to contact Hector at [facility]. PAUL left a voicemail. PAUL then faxed over a referral and the home health physician [id number] encounter certification to Hector at [facility]. PAUL informed the patient's that she was unable to reach [facility], but that the all information that is needed was faxed to them and that PAUL would follow up with them in the morning, 05/12. The patient's was in agreeance to the plan. PAUL updated the patient's nurse of plan. No additional needs at this time.
[2018-05-11 16:59] LABS: ALBUMIN 3.8 gm/dL (3.5-5.0); BILIRUBIN,TOTAL 0.7 mg/dL (0.0-1.0); CREATININE, serum 0.63 mg/dL (0.52-1.25); POTASSIUM 3.2 mmol/L (3.4-5.0); TOTAL PROTEIN 6.6 gm/dL (6.4-8.2)
[2018-05-11 17:02] LABS: COLLECTION METHOD CLEAN CATCH
[2018-05-11 17:03] LABS: HEMATOCRIT 34.8 % (37.0-47.0)
[2018-05-11 17:29] LABS: AMORPHOUS CRYSTAL Present /uL; PH 7 (5-8); URINE APPEARANCE Cloudy; URINE BACTERIA None Seen /hpf; URINE BILIRUBIN Negative (NEGATIVE); URINE BLOOD Negative (NEGATIVE); URINE COLOR Amber; URINE GLUCOSE Negative (NEGATIVE); URINE KETONE 1+ (NEGATIVE); URINE LEUKOCYTE ESTERASE Negative (NEGATIVE); URINE NITRATE Negative (NEGATIVE); URINE PROTEIN(semi-quant) Negative (NEGATIVE); URINE RBC 0-2 /hpf; URINE UROBILINOGEN Negative (NEGATIVE)
[2018-05-11 17:29] LABS: TSH w REFLEX 1.43 uIU/mL (0.465-4.680)
[2018-05-11 19:37] VITALS: BP 104/55; PULSE 81
--- NOTE | 2018-05-12 09:25 | NUR ---
Hector, at [facility], contacted SW to inform that they are able to accept the patient for services. Hector reports that he will be contacting the patient and patient's to start those services. No additional needs at this time.
== END 2018-05-11 20:00 | disposition home or self-care (01) ==
LOC: COL.ER 15:50
PROVIDERS: Family Medicine
DX: R53.1 Weakness (principal); G20 Parkinson's disease; E11.9 Type 2 diabetes mellitus without complications; I10 Essential (primary) hypertension; I48.91 Unspecified atrial fibrillation; E86.0 Dehydration
CPT/HCPCS: J2405; J7030

== ENCOUNTER 2018-05-15 13:54 | Observation (INO) | payer MEDICARE, BC ==
[~2018-05-15] VITALS: Ht 175.3 cm; Wt 79.7 kg
[~2018-05-15 13:54] MED LIST changes: +B-121000 MCG PO; +STOOL SOFTENER100 M2 PO
[2018-05-15 16:31] LABS: BASO % 0.3 % (0.0-2.0); EOS # 0.1 (0.0-0.7); EOS % 1.2 % (0-4.0); GRAN # 5.4 (1.4-6.5); GRAN % 79.4 % (42.2-75.2); HEMOGLOBIN 10.9 g/dl (12.5-16.0); LYMPH # 0.9 (1.2-3.4); LYMPH % 12.7 % (20.0-51.0); MEAN CELL VOLUME 80 fl (80.0-100.0); MEAN CORPUSCULAR HEMOGLOBIN 27 pg (27.0-31.0); MEAN CORPUSCULAR HGB CONC 33 g/dl (33.0-37.0); MEAN PLATELET VOLUME 12.2 fl (7.4-10.4); MONO # 0.4 (0.1-0.6); MONO % 6.3 % (1.7-9.3); PLATELET COUNT 193 K/mm3 (130-400); RED BLOOD COUNT 4.11 M/mm3 (4.10-5.30); REDCELL DISTRIBUTION WIDTH-CV 12.8 % (11.5-14.5)
[2018-05-15 16:32] LABS: HEMATOCRIT 32.7 % (37.0-47.0)
[2018-05-15 16:38] LABS: ALBUMIN 3.4 gm/dL (3.5-5.0); BILIRUBIN,TOTAL 0.6 mg/dL (0.0-1.0); CALCIUM 9.6 mg/dL (8.4-10.2); CREATININE, serum 0.63 mg/dL (0.52-1.25); POTASSIUM 3.2 mmol/L (3.4-5.0); TOTAL PROTEIN 5.9 gm/dL (6.4-8.2)
[2018-05-15 17:17] VITALS: BP 119/59; PULSE 66; TEMP 97.5
--- NOTE | 2018-05-15 18:00 | NUR ---
PATIENT ARRIVED TO ROOM 344 VIA CART FROM THE ED. PATIENT SETTELED INTO ROOM. INITAL COMPLETED BY REENA. PRESENT AT THE BEDSIDE. CALL LIGHT WITHIN REACH.
--- NOTE | 2018-05-15 18:18 | NUR ---
[facility] NOTIFIED OF ORTHOPEDIC CONSULT.
--- NOTE | 2018-05-15 18:55 | NUR ---
PATIENT COMPLAINING OF RIGHT ARM PAIN AND LEFT ANKLE PAIN. PATIENT GIVEN 2MG OF PRN IV MORPHINE. REPORT GIVEN TO NOELLE BERNABE. NO OTHER NEEDS AT THIS TIME.
--- NOTE | 2018-05-15 19:19 | NUR ---
Pt. laying in bed with at bedside. Pt. is A&OX3, assessment complete. Pt. rates pain "all over" at a 8 on pain scale. Lt. ankle in splint pt. denies further needs, call light within reach.
[2018-05-16 04:08] VITALS: BP 129/66; PULSE 65; TEMP 98.1
[2018-05-16 07:10] LABS: CALCIUM 9.5 mg/dL (8.4-10.2); CREATININE, serum 0.64 mg/dL (0.52-1.25); MAGNESIUM 1.6 mg/dL (1.6-2.3); POTASSIUM 3.3 mmol/L (3.4-5.0)
--- NOTE | 2018-05-16 07:25 | NUR ---
PATIENT HAD SMALL EPISODE OF CRANBERRY JUICE COLORED EMESIS. PATIENT GIVEN PRN DOSE OF IV ZOFRAN. WILL CONTINUE TO MONITOR.
--- NOTE | 2018-05-16 08:00 | NUR ---
PATIENT SITTING UP IN BED. PATIENT IS A&O. VSS. BOWEL SOUNDS ACTIVE ALL FOUR QUADRANTS. PATIENT IS NAUSEATED AND VOMITING THIS MORNING. SEE OTHER NOTE FOR INTERVENTION. BOWEL SOUNDS ACTIVE ALL FOUR QUADRANTS. POSITIVE POPLITEAL PULSES EQUAL BILATERALLY. CMS INTACT. CAP REFILL <3 SECONDS. LLE TO SPLINT AND IS CD&I. BANDAID ON RIGHT GREAT TOE NOTED. RIGHT FOOT DROP NOTED, BOOT IN PLACE. BLE FLOATED ON PILLOWS. RUE ELEVATED ON ONE PILLOW. LEFT HAND TO INT. CALL LIGHT WITHIN REACH. NO OTHER NEEDS AT THIS TIME.
[2018-05-16 08:05] VITALS: BP 140/62; PULSE 65; TEMP 98.1
--- NOTE | 2018-05-16 10:28 | NUR ---
PATIENT GIVEN PRN DOSE OF PERCOCET FOR PAIN. WILL CONTINUE TO MONITOR.
--- NOTE | 2018-05-16 11:49 | NUR ---
Initial visit; Patient experiencing nausea but thanked Environmental Geologist for stopping and was receptive to Environmental Geologist keeping her in Environmental Geologist's prayers.
[2018-05-16 13:35] VITALS: BP 115/62; PULSE 66; TEMP 97.7
--- NOTE | 2018-05-16 14:06 | NUR ---
PAUL and PAUL student met with the patient and patient's , Reece, to discuss discharge plan. The patient recently discharged from [facility], 05/11, with home health services for PT/OT/ST/group home through [facility]. The patient's reports that their first visit with them had been scheduled for yesterday, 05/15, but then the patient had her fall. The patient lives in [place] with her . The patient's PCP is Dr. Cristobal Morrell and she receives her medications at the [facility]. SW discussed therapies recommedation of SNF and the options of [facility] vs [facility] vs private paying for SNF. The patient and her preferred [facility]. The patient's reports that the patient does have long-term care insurance and plans to bring the policy number up to the hospital. The patient and patient's were interested and agreeable for PAUL to send a referral to [facility]. PAUL contacted and faxed a referral to Juan Francisco at [facility]. An [facility] consult has been ordered and [facility] Director, Elvira, notified. PAUL awaiting their screenings and will continue to follow.
--- NOTE | 2018-05-16 15:45 | NUR ---
PATIENT GIVEN PRN DOSE OF IV MORPHINE FOR PAIN RATED AT A 10/10. WILL CONTINUE TO MONITOR.
--- NOTE | 2018-05-16 17:25 | NUR ---
PATIENT RATING HER PAIN A 8/10. PATIENT GIVEN PRN DOSE OF PERCOCET.
[2018-05-16 17:53] VITALS: BP 116/54; PULSE 72; TEMP 98.4
--- NOTE | 2018-05-16 19:20 | NUR ---
Pt helped onto bedpan. Pt very restless. Husbnad at bedside. States she is in pain and uncomfortable. Repositioned. Pt just received pain medication before change of shift. Respirations even and unlabored. HR regular. BS +. CAM boot to LLE, elevated. CMS normal to LLE. Pulses palpable. Lungs clear. Will continue to monitor.
[2018-05-16 20:04] VITALS: BP 87/55; PULSE 66; TEMP 98.7
--- NOTE | 2018-05-16 20:06 | NUR ---
REPORT GIVEN TO NOELLE HARRIS.
[2018-05-17 00:53] VITALS: BP 82/67; PULSE 74; TEMP 98.6
[2018-05-17 06:05] LABS: BASO % 0.1 % (0.0-2.0); EOS # 0.1 (0.0-0.7); EOS % 1.2 % (0-4.0); GRAN # 6.6 (1.4-6.5); HEMOGLOBIN 10.2 g/dl (12.5-16.0); LYMPH % 11.1 % (20.0-51.0); MEAN CELL VOLUME 82 fl (80.0-100.0); MEAN CORPUSCULAR HEMOGLOBIN 26 pg (27.0-31.0); MEAN CORPUSCULAR HGB CONC 32 g/dl (33.0-37.0); MEAN PLATELET VOLUME 12.9 fl (7.4-10.4); MONO # 0.9 (0.1-0.6); MONO % 10.4 % (1.7-9.3); PLATELET COUNT 180 K/mm3 (130-400); RED BLOOD COUNT 3.89 M/mm3 (4.10-5.30); REDCELL DISTRIBUTION WIDTH-CV 13.1 % (11.5-14.5)
[2018-05-17 06:08] LABS: HEMATOCRIT 31.9 % (37.0-47.0)
[2018-05-17 06:21] VITALS: BP 104/59; PULSE 64
[2018-05-17 06:21] LABS: CREATININE, serum 0.64 mg/dL (0.52-1.25); MAGNESIUM 1.7 mg/dL (1.6-2.3); POTASSIUM 3.9 mmol/L (3.4-5.0)
--- NOTE | 2018-05-17 06:43 | NUR ---
Pt resting now after c/o nausea. Nausea has been relief by IV Zofran and Sprite. Pt slept periodically throughout the night.
--- NOTE | 2018-05-17 06:50 | NUR ---
Bedside shift report received from NOELLE Del Cid. Pt resting in bed, requesting frequent assistance with things like repositioning foot and head of bed. student nurse at bedside, will provide assistance and continue to monitor.
--- NOTE | 2018-05-17 10:32 | NUR ---
Pt has had difficult morning. Requested IV medications earlier, provided Protonix as scheduled, discussed need to try and refrain from IV pain medications if going for placement today. Refused PO medications all together this morning for feeling "erpy" but arrived later and was very upset that she had not received medications. Provided medications as requested. Assessment completed. Pt has difficulty letting me touch any part of her, difficulty leanign forward at times and cannot get comfortable in bed despite very frequent repositioning. Family now at bedside, will continue to monitor.
--- NOTE | 2018-05-17 10:49 | NUR ---
Juan Francisco, at [facility], reports that they can accept the patient. SW to inform the patient and patient's and continue to follow.
[2018-05-17 12:37] VITALS: BP 83/45; PULSE 61; TEMP 97.6
[2018-05-17] MEDS ORDERED: PERCOCET 325 MG1 TAB PO (14:26)
[2018-05-17] MEDS ORDERED: ZANTAC 150MG T150 MG PO (14:27)
[2018-05-17] MEDS ORDERED: NOVLOG SQ (14:28)
[2018-05-17] MEDS ORDERED: PHENERGAN 25 TA25 MG PO (14:30)
[2018-05-17] MEDS ORDERED: ZOFRAN ODT4 MG PO (14:30)
[2018-05-17 15:13] VITALS: BP 83/45; PULSE 61; TEMP 97.6
--- NOTE | 2018-05-17 15:23 | NUR ---
Elvira, with [facility], reports that they are unable to accept the patient. SW met with the patient and patient's to update on referrals. The patient and patient's report that they are agreeable to transfer to [facility] upon discharge and private pay. The patient is to discharge today, 05/17, and will private pay for a skilled stay at [facility]. Transportation was set for 1600, via [facility]. SW informed the patient and patient's nurse. They were both in agreeance. No additional needs at this time.
--- NOTE | 2018-05-17 16:45 | NUR ---
Report called to [facility] nurse who will be resuming care. Pt prepped for planned 1600 discharge, ride did not come until 1645, moved pt to [facility] w/c with full body lift and 3 staff members for assistance. Pt expressed concerns, visually looks anxious. left with all belongings and will meet pt there. INT d/c'd, tip intact. Packet given to transport team, criteria met.
== END 2018-05-17 16:45 ==
LOC: COL.ER 13:54 → SURG 16:12
PROVIDERS: Emergency Medicine; Physician Assistant; ADMIT Internal Medicine
DX: S82.52XA Displaced fracture of medial malleolus of left tibia, initial encounter for closed fracture (principal); E87.6 Hypokalemia; E83.42 Hypomagnesemia; G20 Parkinson's disease; K29.50 Unspecified chronic gastritis without bleeding; R11.2 Nausea with vomiting, unspecified; E11.9 Type 2 diabetes mellitus without complications; I10 Essential (primary) hypertension; F41.9 Anxiety disorder, unspecified; F32.9 Major depressive disorder, single episode, unspecified; I48.0 Paroxysmal atrial fibrillation; E44.0 Moderate protein-calorie malnutrition; Z88.2 Allergy status to sulfonamides; F17.210 Nicotine dependence, cigarettes, uncomplicated; Z90.49 Acquired absence of other specified parts of digestive tract; E66.9 Obesity, unspecified; Z81.8 Family history of other mental and behavioral disorders
CPT/HCPCS: 99239; C9113; G0378; J1650; J1815; J2270; J2405; J3475; J3480; Q4045

== ENCOUNTER → 2018-05-18 | Outpatient (CLI) | payer MEDICARE, BC ==
[~2018-05-18] MED LIST changes: +PHENERGAN 25 TA25 MG PO; +ZANTAC 150MG T150 MG PO; +ZOFRAN ODT4 MG PO
== END ==
LOC: BHSO 10:39
DX: F06.32 Mood disorder due to known physiological condition with major depressive-like episode (principal)

== ENCOUNTER → 2018-06-16 | Outpatient (CLI) | payer MEDICARE, BC | LOC: BHSO 14:39 | DX: F06.32 Mood disorder due to known physiological condition with major depressive-like episode (principal) | CPT/HCPCS: G0463 ==

== ENCOUNTER → 2018-06-20 | Outpatient (CLI) | payer MEDICARE, BC | LOC: MC.RAD 14:45 | DX: Z12.31 Encounter for screening mammogram for malignant neoplasm of breast (principal) ==

== ENCOUNTER → 2018-08-11 | Outpatient (CLI) | payer MEDICARE, BC | LOC: BHSO 14:23 | DX: F06.32 Mood disorder due to known physiological condition with major depressive-like episode (principal) | CPT/HCPCS: G0463 ==

== ENCOUNTER → 2019-02-22 | Outpatient (CLI) | payer MEDICARE, BC | LOC: BHSO 14:45 | DX: F06.32 Mood disorder due to known physiological condition with major depressive-like episode (principal) ==

== ENCOUNTER 2019-04-26 07:59 | Emergency (ER) | payer MEDICARE, BC ==
[~2019-04-26] VITALS: Ht 175.3 cm; Wt 90.9 kg
[2019-04-26 08:05] VITALS: PULSE 109; TEMP 97.5
[2019-04-26 09:06] LABS: HEMATOCRIT 39.5 % (37.0-47.0); HEMOGLOBIN 12.6 g/dl (12.5-16.0); MEAN CELL VOLUME 88 fl (80.0-100.0); MEAN CORPUSCULAR HEMOGLOBIN 28 pg (27.0-31.0); MEAN CORPUSCULAR HGB CONC 32 g/dl (33.0-37.0); MEAN PLATELET VOLUME 10.7 fl (7.4-10.4); PLATELET COUNT 222 K/mm3 (130-400); REDCELL DISTRIBUTION WIDTH-CV 13.2 % (11.5-14.5)
[2019-04-26 09:09] LABS: INR 0.9 (0.8-3.0); PROTHROMBIN TIME 10.1 SECONDS (9.7-12.8)
[2019-04-26 09:17] LABS: ALANINE AMINOTRANSFERASE < 6 U/L (9-52); ALBUMIN 4.3 gm/dL (3.5-5.0); ALKALINE PHOSPHATASE 72 U/L (50-136); ANION GAP 8 mmol/L (7-16); AST,SGOT 13 U/L (15-37); BILIRUBIN,TOTAL 0.5 mg/dL (0.0-1.0); BLOOD UREA NITROGEN 24 mg/dL (7-17); CALCIUM 9.6 mg/dL (8.4-10.2); CARBON DIOXIDE 26 mmol/L (22-30); CHLORIDE 107 mmol/L (98-107); CREATININE, serum 0.64 (0.52-1.25); GLUCOSE 221 mg/dL (74-106); LIPASE 63 U/L (23-300); POTASSIUM 3.7 mmol/L (3.4-5.0); SODIUM 141 mmol/L (137-145); TOTAL PROTEIN 6.9 gm/dL (6.4-8.2)
[2019-04-26 09:22] LABS: C-REACTIVE PROTEIN < 0.5 mg/dL (0.0-0.9)
[2019-04-26 09:26] LABS: TROPONIN-I < 0.012 ng/mL (0.000-0.035)
[2019-04-26 09:43] LABS: BAND 21 % (0-10); LYMPHOCYTE 3 % (20.0-51.0); NEUTROPHILS 71 % (42.0-75.2); PLATELET ESTIMATE NORMAL (NORMAL)
[2019-04-26 10:02] LABS: COLLECTION METHOD CLEAN CATCH
[2019-04-26 10:19] LABS: PH 5 (5-8); URINE APPEARANCE Clear; URINE BILIRUBIN Negative (NEGATIVE); URINE BLOOD Negative (NEGATIVE); URINE COLOR Amber; URINE GLUCOSE Negative (NEGATIVE); URINE KETONE Trace (NEGATIVE); URINE LEUKOCYTE ESTERASE Negative (NEGATIVE); URINE NITRATE Negative (NEGATIVE); URINE PROTEIN(semi-quant) Negative (NEGATIVE); URINE UROBILINOGEN Negative (NEGATIVE)
[2019-04-26 10:34] LABS: URINE CALCIUM OXALATE CRYSTAL Present /hpf; URINE RBC None Seen /hpf
[2019-04-26] MEDS ORDERED: OMNICEF 300MG300 MG PO (11:37)
[2019-04-26] MEDS ORDERED: DOXYCYCLINE 10100 MG PO (11:37)
[2019-04-26 12:27] VITALS: BP 116/77
== END 2019-04-26 12:38 | disposition home or self-care (01) ==
LOC: COL.ER 07:59
PROVIDERS: Emergency Medicine
DX: E11.9 Type 2 diabetes mellitus without complications (principal); D72.829 Elevated white blood cell count, unspecified; I10 Essential (primary) hypertension; E66.9 Obesity, unspecified; F41.9 Anxiety disorder, unspecified; R25.1 Tremor, unspecified; Z79.4 Long term (current) use of insulin; Z87.891 Personal history of nicotine dependence; Z90.89 Acquired absence of other organs; Z86.718 Personal history of other venous thrombosis and embolism; Z68.29 Body mass index [BMI] 29.0-29.9, adult
CPT/HCPCS: A4216; J0696; J2405; J7040

== ENCOUNTER 2019-06-27 13:34 | Outpatient (RCR) | payer MEDICARE, BC ==
[~2019-06-27 13:34] MED LIST changes: +DOXYCYCLINE 10100 MG PO
== END 2019-09-25 | disposition home or self-care (01) ==
LOC: MKS.ESL.PT
DX: G20 Parkinson's disease (principal)

== ENCOUNTER → 2019-08-21 | Outpatient (CLI) | payer MEDICARE, BC | LOC: BHSO 14:00 | DX: F06.32 Mood disorder due to known physiological condition with major depressive-like episode (principal) ==

== ENCOUNTER 2021-06-04 04:58 | Emergency (ER) | payer MEDICARE, BC ==
[~2021-06-04] VITALS: Ht 172.7 cm; Wt 68.2 kg
[~2021-06-04 04:58] MED LIST changes: +MIRTAZAPINE7.5 MG PO; +ONGENTYS50 MG PO; +VITAMIN D31000 IU PO; +ZOFRAN 4MG T4 MG/TAB PO
[2021-06-04 04:59] VITALS: TEMP 97.7
[2021-06-04 05:39] LABS: COLLECTION METHOD CATHETER
[2021-06-04 05:47] LABS: MUCOUS Present (NOT PRESENT); PH 6 (5-8); URINE APPEARANCE Hazy (CLEAR/HAZY); URINE BACTERIA None Seen /hpf (NONE SEEN); URINE BILIRUBIN Negative (NEGATIVE); URINE BLOOD Negative (NEGATIVE); URINE COLOR Yellow (YELLOW); URINE GLUCOSE Negative (NEGATIVE); URINE KETONE Trace (NEGATIVE); URINE LEUKOCYTE ESTERASE Negative (NEGATIVE); URINE NITRATE Negative (NEGATIVE); URINE PROTEIN(semi-quant) Negative (NEGATIVE); URINE RBC 0-2 /hpf (0-2); URINE UROBILINOGEN Negative (NEGATIVE)
[2021-06-04 05:54] LABS: BASO % 0.7 % (0.0-2.0); EOS # 0.2 K/mm3 (0.0-0.7); EOS % 5.7 % (0.0-4.0); GRAN # 2.5 K/mm3 (1.4-6.5); GRAN % 63.3 % (42.2-75.2); HEMOGLOBIN 11.8 g/dl (12.5-16.0); LYMPH # 0.9 K/mm3 (1.2-3.4); LYMPH % 22.1 % (20.0-51.0); MEAN CELL VOLUME 85 fl (80.0-100.0); MEAN CORPUSCULAR HEMOGLOBIN 27 pg (27-31); MEAN CORPUSCULAR HGB CONC 32 g/dl (33.0-37.0); MEAN PLATELET VOLUME 10.2 fl (7.4-10.4); MONO # 0.3 K/mm3 (0.1-0.6); PLATELET COUNT 216 K/mm3 (130-400); RED BLOOD COUNT 4.33 M/mm3 (4.10-5.30); REDCELL DISTRIBUTION WIDTH-CV 13.2 % (11.5-14.5)
[2021-06-04 05:56] LABS: HEMATOCRIT 36.8 % (37.0-47.0)
[2021-06-04 06:10] LABS: ALANINE AMINOTRANSFERASE < 6 U/L (0-55); ALBUMIN 3.8 gm/dL (3.4-4.8); ALKALINE PHOSPHATASE 74 U/L (40-150); ANION GAP 10 mmol/L (7-16); AST,SGOT 10 U/L (5-34); BILIRUBIN,TOTAL 0.5 mg/dL (0.2-1.2); BLOOD UREA NITROGEN 15 mg/dL (10-20); CALCIUM 9.5 mg/dL (8.4-10.2); CARBON DIOXIDE 28 mmol/L (23-31); CHLORIDE 104 mmol/L (98-107); CREATININE, serum 0.69 mg/dL (0.57-1.11); GLUCOSE 161 mg/dL (70-99); POTASSIUM 3.8 mmol/L (3.5-4.5); SODIUM 142 mmol/L (136-145); TOTAL PROTEIN 6.3 gm/dL (6.2-8.1)
[2021-06-04 07:18] VITALS: BP 134/86; PULSE 71
== END 2021-06-04 07:20 | disposition home or self-care (01) ==
LOC: COL.ER 04:58
PROVIDERS: Personal Emergency Response Attendant
DX: R41.82 Altered mental status, unspecified (principal); G20 Parkinson's disease; Z87.891 Personal history of nicotine dependence; Z79.899 Other long term (current) drug therapy
CPT/HCPCS: J7030

== ENCOUNTER 2022-06-30 08:23 | Emergency (ER) | payer MEDICARE, BC ==
[~2022-06-30] VITALS: Ht 175.3 cm; Wt 67.7 kg
[2022-06-30 08:54] LABS: BASO % 0.6 % (0.0-2.0); EOS # 0.3 K/mm3 (0.0-0.7); GRAN # 2.1 K/mm3 (1.4-6.5); GRAN % 43.4 % (42.2-75.2); HEMATOCRIT 38.2 % (37.0-47.0); HEMOGLOBIN 12.3 g/dl (12.5-16.0); LYMPH # 1.9 K/mm3 (1.2-3.4); LYMPH % 40.2 % (20.0-51.0); MEAN CELL VOLUME 86 fl (80.0-100.0); MEAN CORPUSCULAR HEMOGLOBIN 28 pg (27-31); MEAN CORPUSCULAR HGB CONC 32 g/dl (33.0-37.0); MEAN PLATELET VOLUME 10.3 fl (7.4-10.4); MONO # 0.5 K/mm3 (0.1-0.6); MONO % 9.6 % (1.7-9.3); PLATELET COUNT 200 K/mm3 (130-400); RED BLOOD COUNT 4.43 M/mm3 (4.10-5.30); REDCELL DISTRIBUTION WIDTH-CV 13.6 % (11.5-14.5)
[2022-06-30 09:03] LABS: COLLECTION METHOD CLEAN CATCH
[2022-06-30 09:04] LABS: ALBUMIN 3.7 gm/dL (3.4-4.8); ALKALINE PHOSPHATASE 66 U/L (40-150); ANION GAP 9 mmol/L (7-16); AST,SGOT 9 U/L (5-34); BILIRUBIN,TOTAL 0.5 mg/dL (0.2-1.2); BLOOD UREA NITROGEN 16 mg/dL (10-20); CALCIUM 9.4 mg/dL (8.4-10.2); CARBON DIOXIDE 29 mmol/L (23-31); CHLORIDE 104 mmol/L (98-107); GLUCOSE 136 mg/dL (70-99); POTASSIUM 3.9 mmol/L (3.5-4.5); SODIUM 142 mmol/L (136-145); TOTAL PROTEIN 6.5 gm/dL (6.2-8.1)
[2022-06-30 09:05] LABS: ALANINE AMINOTRANSFERASE < 6 U/L (0-55)
[2022-06-30 09:08] LABS: MUCOUS Present (NOT PRESENT); SQUAMOUS EPITHELIAL 0-2 /hpf (0-10); URINE BACTERIA Rare /hpf (NONE SEEN); URINE RBC 0-2 /hpf (0-2)
[2022-06-30 09:17] LABS: URINE APPEARANCE Clear (CLEAR/HAZY); URINE BLOOD Negative (NEGATIVE); URINE COLOR Yellow (YELLOW); URINE GLUCOSE Negative (NEGATIVE); URINE KETONE 1+ (NEGATIVE); URINE NITRATE Negative (NEGATIVE); URINE PROTEIN(semi-quant) Negative (NEGATIVE); URINE UROBILINOGEN 0.2 E.U/dL (0.2-1.0)
[2022-06-30 11:13] VITALS: BP 160/81; PULSE 65; TEMP 97.9
== END 2022-06-30 11:16 | disposition home or self-care (01) ==
LOC: COL.ER 08:23
PROVIDERS: Personal Emergency Response Attendant
DX: R41.82 Altered mental status, unspecified (principal); G20 Parkinson's disease; G89.29 Other chronic pain; Z79.899 Other long term (current) drug therapy; Z79.891 Long term (current) use of opiate analgesic
CPT/HCPCS: J2270; J7030

== ENCOUNTER 2022-11-03 13:03 | Outpatient (RCR) | payer MEDICARE, BC | END 2022-12-02 | LOC: MKS.ESL.PT | DX: G20 Parkinson's disease (principal) ==

== ENCOUNTER 2023-07-16 14:24 | Emergency (ER) | payer MEDICARE, BC ==
[~2023-07-16] VITALS: Ht 167.6 cm; Wt 67.7 kg
[2023-07-16 14:26] VITALS: TEMP 98.9
[2023-07-16] MEDS ORDERED: NUPLAZID34 MG PO (14:42)
[2023-07-16] MEDS ORDERED: SEROQUEL 2525 MG/TAB PO (14:43)
[2023-07-16] MEDS ORDERED: DAZIDOX10 MG PO (14:43)
[2023-07-16] MEDS ORDERED: MACRODANTIN100 PO (14:43)
[2023-07-16] MEDS ORDERED: Ondansetron 4 MG/2 ML VIAL IV ONE (14:45)
[2023-07-16 15:00] LABS: BASO % 0.3 % (0.0-2.0); EOS # 0.3 K/mm3 (0.0-0.7); EOS % 4.5 % (0.0-4.0); GRAN # 5.5 K/mm3 (1.4-6.5); GRAN % 82.6 % (42.2-75.2); HEMATOCRIT 38.7 % (37.0-47.0); HEMOGLOBIN 12.4 g/dl (12.5-16.0); LYMPH # 0.5 K/mm3 (1.2-3.4); LYMPH % 7.6 % (20.0-51.0); MEAN CELL VOLUME 86 fl (80.0-100.0); MEAN CORPUSCULAR HEMOGLOBIN 28 pg (27-31); MEAN CORPUSCULAR HGB CONC 32 g/dl (33.0-37.0); MEAN PLATELET VOLUME 10.7 fl (7.4-10.4); MONO # 0.3 K/mm3 (0.1-0.6); MONO % 4.7 % (1.7-9.3); PLATELET COUNT 205 K/mm3 (130-400); RED BLOOD COUNT 4.51 M/mm3 (4.10-5.30); REDCELL DISTRIBUTION WIDTH-CV 13.9 % (11.5-14.5)
[2023-07-16 15:16] LABS: ALBUMIN 3.5 g/dL (3.4-4.8); ALKALINE PHOSPHATASE 68 U/L (40-150); ANION GAP 10 mmol/L (7-16); AST,SGOT 10 U/L (5-34); BILIRUBIN,TOTAL 0.6 mg/dL (0.2-1.2); BLOOD UREA NITROGEN 24 mg/dL (10-20); CALCIUM 10.1 mg/dL (8.4-10.2); CHLORIDE 104 mEq/L (98-107); CREATININE, serum 0.73 mg/dL (0.57-1.11); GLUCOSE 149 mg/dL (70-99); POTASSIUM 3.8 mEq/L (3.5-4.5); SODIUM 143 mEq/L (136-145); TOTAL PROTEIN 6.7 g/dl (6.2-8.1)
[2023-07-16 15:17] LABS: ALANINE AMINOTRANSFERASE < 6 U/L (0-55)
[2023-07-16 15:30] LABS: COLLECTION METHOD CATHETER
[2023-07-16 15:38] LABS: URINE APPEARANCE CLEAR (CLEAR/HAZY); URINE BLOOD NEGATIVE (NEGATIVE); URINE COLOR Dark Yellow (YELLOW); URINE GLUCOSE NEGATIVE (NEGATIVE); URINE KETONE 1+ (NEGATIVE); URINE NITRATE NEGATIVE (NEGATIVE); URINE PROTEIN(semi-quant) 1+ (NEGATIVE)
[2023-07-16 15:53] LABS: URINE BACTERIA OCCASIONAL /hpf (NONE SEEN)
[2023-07-16] MEDS ORDERED: Baclofen 10 MG TAB PO ONE (16:30)
[2023-07-16] MEDS ORDERED: rOPINIRole 1 MG TAB PO ONE (16:30)
[2023-07-16 18:33] VITALS: BP 145/73; PULSE 68
== END 2023-07-16 18:58 | disposition home or self-care (01) ==
LOC: COL.ER 14:24
PROVIDERS: Emergency Medicine
DX: N39.0 Urinary tract infection, site not specified (principal); R03.0 Elevated blood-pressure reading, without diagnosis of hypertension; Z88.2 Allergy status to sulfonamides
CPT/HCPCS: J1920; J2405

== ENCOUNTER 2023-09-10 08:00 | Outpatient (RCR) | payer MEDICARE, BC ==
[~2023-09-10 08:00] MED LIST changes: +DAZIDOX10 MG PO; +MACRODANTIN100 PO; +NUPLAZID34 MG PO; +SEROQUEL 2525 MG/TAB PO
== END 2023-10-02 ==
LOC: MKS.ESL.PT
DX: G20.A1 Parkinson's disease without dyskinesia, without mention of fluctuations (principal)